=== PATIENT | male | born 2005 | race African-American/Black ===

== ENCOUNTER 2023-02-03 02:30 | Emergency (ER) | payer OTHER, SELFPAY ==
[2023-02-03] MEDS ORDERED: Dicyclomine 20 MG/2 ML VIAL ONE (02:52)
[2023-02-03 03:09] LABS: #Basophils 0.1 10x3/uL (0.0-0.2); #Eosinphils 0.1 10x3/uL (0.0-0.5); #Monocytes 0.4 10x3/uL (0.0-1.1); #Neutrophils 3.8 10x3/uL (1.5-8.4); %Basophils 1.1 % (0.0-2.0); %Lymphocytes 28.4 % (18.0-47.0); %Monocytes 6.9 % (0.0-10.0); %Neutrophils 62.3 % (40.0-75.0); Hematocrit 36.7 % (38.8-50.0); Mean Corpuscular HGB CONC 35.4 g/dL (32.0-36.0); Mean Corpuscular Hemoglobin 30.7 pg (27.0-33.0); Mean Corpuscular Volume 86.6 fl (81.2-95.1); Mean Platelet Volume 11.1 fl (7.4-10.4); Platelet Count 318 10x3/uL (150-450); RBC Distribution Width 10.7 % (11.5-14.5); Red Blood Cell (RBC) Count 4.24 10x6/uL (4.32-5.72); White Blood Cell (WBC) Count 6.1 10x3/uL (3.5-10.5)
[2023-02-03 03:21] LABS: ALT (SGPT) 16 U/L (8-55); AST (SGOT) 22 U/L (10-45); Albumin 4.6 g/dL (3.5-5.0); Alkaline Phosphatase 67 U/L (50-130); Anion Gap 15 mmol/L (10-20); BUN (Urea Nitrogen) 9 mg/dL (8.4-21.0); Bilirubin, Total 0.8 mg/dL (0.2-1.2); Calc. Creatinine Clearance 0 mL/min (70-130); Calcium 9.5 mg/dL (7.8-10.44); Carbon Dioxide 24 mmol/L (22-29); Chloride 104 mmol/L (98-107); Estimated GFR 113; Glucose 94 mg/dL (70-105); Magnesium 1.7 mg/dL (1.7-2.2); Potassium 3.2 mmol/L (3.5-5.1); Protein, Total 7.6 g/dL (6.0-8.3); Sodium 140 mmol/L (136-145)
[2023-02-03] MEDS ORDERED: Iopamidol 300 61% 100 ML VIAL FS ONE (09:23)
== END 2023-02-03 04:18 | disposition home or self-care (01) ==
LOC: CSHERS 02:30
DX: K59.00 Constipation, unspecified (principal); F17.210 Nicotine dependence, cigarettes, uncomplicated
CPT/HCPCS: 74177; 80053; 83735; 85025; 96372; Q9967

== ENCOUNTER 2023-06-23 18:51 | Emergency (ER) | payer SELFPAY ==
[2023-06-23] MEDS ORDERED: Ketorolac Tromethamine 30 MG (1 mL) VIAL ONE (19:37)
[2023-06-23 19:52] LABS: Acetaminophen Less than 10 mcg/mL (10.0-30.0); Alcohol Less than 10.0 mg/dL (Less than 10); Salicylate Less than 8.0 mg/dL (15.0-30.0)
[2023-06-23 19:56] LABS: Troponin I Less than 0.010 ng/mL (< 0.028)
[2023-06-23 21:08] LABS: Amphetamine Not Detected (NotDetected); Barbiturates Screen Not Detected (NotDetected); Benzodiazepine Screen Not Detected (NotDetected); Cocaine Metabolite Screen Not Detected (NotDetected); Methadone Not Detected (NotDetected); Methamphetamine Not Detected (NotDetected); Opiate Screen Not Detected (NotDetected); Oxycodone Screen Not Detected (NotDetected); Phencyclidine (PCP) Not Detected (NotDetected); THC/Cannabinoid Screen Not Detected (NotDetected); Tricyclic Screen Not Detected (NotDetected)
== END 2023-06-23 21:53 | disposition home or self-care (01) ==
LOC: CSHERS 18:51
DX: R07.89 Other chest pain (principal); F17.210 Nicotine dependence, cigarettes, uncomplicated
CPT/HCPCS: 36415; 80306; 80307; 93005; 93010; 96372; J1885

== ENCOUNTER 2023-08-16 02:30 | Emergency (ER) | payer SELFPAY | END 2023-08-16 03:04 | disposition home or self-care (01) | LOC: CSHERS 02:30 | DX: R07.89 Other chest pain (principal); F17.210 Nicotine dependence, cigarettes, uncomplicated | CPT/HCPCS: 93005; 93010; 99284 ==

== ENCOUNTER 2024-02-14 02:47 | Emergency (ER) | payer SELFPAY ==
[2024-02-14] MEDS ORDERED: Ketorolac Tromethamine 30 MG (1 mL) VIAL ONE (04:11)
[2024-02-14 04:12] LABS: Bilirubin Neg (Negative); Blood, Urine Negative (Negative); Glucose, Urine (Dipstick) Normal (Negative); Ketone, Urine 5 mg/dL (Negative); Leukocyte Negative (Negative); Nitrite Negative (Negative); Protein, Urine (Dipstick) Negative (Neg-Trace); Specific Gravity, Urine 1.005 (1.005-1.030); Urobilinogen Normal mg/dL (Less than 2); pH, Urine 6.5 (5.0-9.0)
[2024-02-14 04:20] LABS: #Basophils 0.05 10x3/uL (0.0-0.2); #Eosinphils 0.06 10x3/uL (0.0-0.5); #Monocytes 0.57 10x3/uL (0.0-1.1); #Neutrophils 7.17 10x3/uL (1.5-8.4); %Basophils 0.5 % (0.0-2.0); %Eosinophils 0.6 % (0.0-6.0); %Lymphocytes 15.5 % (18.0-47.0); %Monocytes 6.1 % (0.0-10.0); Hematocrit 37.2 % (38.8-50.0); Hemoglobin 12.9 g/dL (13.5-17.5); Mean Corpuscular HGB CONC 34.7 g/dL (32.0-36.0); Mean Corpuscular Hemoglobin 31.2 pg (27.0-33.0); Mean Corpuscular Volume 90.1 fL (81.2-95.1); Mean Platelet Volume 10.6 fL (7.4-10.4); Platelet Count 279 10x3/uL (150-450); Red Blood Cell (RBC) Count 4.13 10x6/uL (4.32-5.72); White Blood Cell (WBC) Count 9.3 10x3/uL (3.5-10.5)
[2024-02-14 04:20] LABS: Clarity Clear (Clear)
[2024-02-14 04:21] LABS: Bacteria/HPF Rare-Few HPF (None Seen); CAUTI Indications for Culture Pelvic or flank pain; RBC/HPF 0-3 HPF (0-3); Squamous Epithelial 0-3 HPF (0-3); WBC/HPF 0-3 HPF (0-3)
[2024-02-14 04:22] LABS: Urine Culture Reflex No No
[2024-02-14 04:37] LABS: ALT (SGPT) 28 U/L (8-55); AST (SGOT) 23 U/L (5-34); Albumin 4.3 g/dL (3.5-5.0); Alkaline Phosphatase 70 U/L (40-110); Anion Gap 14 mmol/L (10-20); BUN (Urea Nitrogen) 10 mg/dL (8.9-20.6); Bilirubin, Total 0.6 mg/dL (0.2-1.2); Calc. Creatinine Clearance 0 mL/min (70-130); Calcium 9.8 mg/dL (7.8-10.44); Carbon Dioxide 26 mmol/L (22-29); Chloride 103 mmol/L (98-107); Estimated GFR 115; Globulin 3.2 g/dL (2.4-3.5); Glucose 105 mg/dL (70-105); Lipase 14 U/L (8-78); Potassium 3.8 mmol/L (3.5-5.1); Protein, Total 7.5 g/dL (6.0-8.3); Sodium 139 mmol/L (136-145)
[2024-02-14] MEDS ORDERED: Iopamidol 370 76% 100 ML VIAL ONE (11:21)
== END 2024-02-14 05:36 | disposition home or self-care (01) ==
LOC: CSHERS 02:47
DX: R07.89 Other chest pain (principal); R10.13 Epigastric pain; I88.0 Nonspecific mesenteric lymphadenitis
CPT/HCPCS: 71045; 74177; 80053; 81001; 83690; 85025; 93005; 96374; J1885; Q9967

== ENCOUNTER 2024-02-21 07:55 | Emergency (ER) | payer SELFPAY ==
[2024-02-21] MEDS ORDERED: Ketorolac Tromethamine 30 MG (1 mL) VIAL ONE (08:53)
[2024-02-21 09:23] LABS: #Basophils 0.06 10x3/uL (0.0-0.2); #Eosinphils 0.14 10x3/uL (0.0-0.5); #Neutrophils 3.33 10x3/uL (1.5-8.4); %Eosinophils 2.3 % (0.0-6.0); %Lymphocytes 34.1 % (18.0-47.0); %Monocytes 8.1 % (0.0-10.0); Hematocrit 36.6 % (38.8-50.0); Hemoglobin 12.9 g/dL (13.5-17.5); Mean Corpuscular HGB CONC 35.2 g/dL (32.0-36.0); Mean Corpuscular Hemoglobin 31.3 pg (27.0-33.0); Mean Corpuscular Volume 88.8 fL (81.2-95.1); Mean Platelet Volume 10.6 fL (7.4-10.4); Platelet Count 293 10x3/uL (150-450); RBC Distribution Width 11.5 % (11.5-14.5); Red Blood Cell (RBC) Count 4.12 10x6/uL (4.32-5.72); White Blood Cell (WBC) Count 6.2 10x3/uL (3.5-10.5)
[2024-02-21 09:41] LABS: ALT (SGPT) 19 U/L (8-55); AST (SGOT) 20 U/L (5-34); Albumin 4.4 g/dL (3.5-5.0); Alkaline Phosphatase 63 U/L (40-110); Anion Gap 16 mmol/L (10-20); BUN (Urea Nitrogen) 15 mg/dL (8.9-20.6); Bilirubin, Total 0.8 mg/dL (0.2-1.2); Calc. Creatinine Clearance 0 mL/min (70-130); Calcium 9.8 mg/dL (7.8-10.44); Carbon Dioxide 24 mmol/L (22-29); Chloride 101 mmol/L (98-107); Estimated GFR 113; Globulin 3.2 g/dL (2.4-3.5); Glucose 83 mg/dL (70-105); Lipase 9 U/L (8-78); Potassium 3.9 mmol/L (3.5-5.1); Protein, Total 7.6 g/dL (6.0-8.3); Sodium 137 mmol/L (136-145)
[2024-02-21 11:34] LABS: Bilirubin Neg (Negative); Blood, Urine Negative (Negative); Glucose, Urine (Dipstick) Normal (Negative); Ketone, Urine 150 mg/dL (Negative); Leukocyte Negative (Negative); Nitrite Negative (Negative); Protein, Urine (Dipstick) 15 mg/dl (Neg-Trace)
[2024-02-21 11:35] LABS: Clarity Clear (Clear)
[2024-02-21] MEDS ORDERED: Ondansetron PF 4 MG/2 ML Vial ONE (12:04)
[2024-02-21] MEDS ORDERED: Morphine 4 MG/ML VIAL ONE (12:04)
[2024-02-21 12:12] LABS: Bacteria/HPF Rare-Few HPF (None Seen); CAUTI Indications for Culture Pelvic or flank pain; RBC/HPF 0-3 HPF (0-3); WBC/HPF 0-3 HPF (0-3)
[2024-02-21 12:13] LABS: Urine Culture Reflex No No
[2024-02-21] MEDS ORDERED: Iopamidol 300 61% 100 ML VIAL FS ONE (15:26)
== END 2024-02-21 15:20 | disposition home or self-care (01) ==
LOC: CSHERS 07:55
DX: K52.9 Noninfective gastroenteritis and colitis, unspecified (principal); I88.0 Nonspecific mesenteric lymphadenitis; F17.210 Nicotine dependence, cigarettes, uncomplicated; Z55.6 Problems related to health literacy
CPT/HCPCS: 74177; 80053; 81001; 83690; 85025; 96374; 96375; J1885; J2272; J2405; Q9967

== ENCOUNTER 2024-03-10 01:09 | Emergency (ER) | payer SELFPAY ==
[2024-03-10] MEDS ORDERED: Acetaminophen 325 MG TAB ONE (01:54)
== END 2024-03-10 02:02 | disposition home or self-care (01) ==
LOC: CSHERS 01:09
DX: G89.29 Other chronic pain (principal); R10.9 Unspecified abdominal pain; F17.210 Nicotine dependence, cigarettes, uncomplicated
CPT/HCPCS: 99284

== ENCOUNTER 2024-03-23 09:23 | Emergency (ER) | payer SELFPAY | END 2024-03-23 12:18 | disposition home or self-care (01) | LOC: CSHERS 09:23 | DX: R06.02 Shortness of breath (principal); F17.210 Nicotine dependence, cigarettes, uncomplicated | CPT/HCPCS: 71045; 93005 ==

== ENCOUNTER 2024-04-22 22:42 | Emergency (ER) | payer SELFPAY ==
[2024-04-22] MEDS ORDERED: Dexamethasone 10 MG/ML VIAL ONE (22:53)
[2024-04-22] MEDS ORDERED: Albuterol 2.5 MG (3 mL) NEB ONE (23:12)
== END 2024-04-22 23:44 | disposition home or self-care (01) ==
LOC: CSHERS 22:42
DX: J45.901 Unspecified asthma with (acute) exacerbation (principal); F17.210 Nicotine dependence, cigarettes, uncomplicated; Z79.51 Long term (current) use of inhaled steroids
CPT/HCPCS: 94640; 94760; 96374; J1100; J7611